=== PATIENT | female | born 1965 | race African-American/Black ===

== ENCOUNTER 2021-09-01 20:11 | Emergency (ER) | payer MEDICARE, OTHER ==
[~2021-09-01] VITALS: Ht 154.9 cm; Wt 59.0 kg
[2021-09-01 20:49] VITALS: BP_SYST 121
[2021-09-01 21:40] LABS: BILIRUBIN,URINE NEGATIVE (NEGATIVE); BLOOD, URINE 2+ (NEGATIVE); COLOR,URINE YELLOW (YELLOW); GLUCOSE,URINE NEGATIVE (NEGATIVE); KETONES,URINE NEGATIVE (NEGATIVE); LEUKOCYTE ESTERASE ,URINE 1+ (NEGATIVE); NITRITE, URINE NEGATIVE (NEGATIVE); PROTEIN URINE NEGATIVE (NEGATIVE); UROBILINOGEN,URINE 0.2 (0.2-1.0)
--- NOTE | 2021-09-01 22:05 | NUR ---
Per ad clerk, pt LWBS.
[2021-09-01 22:20] LABS: CLARITY/URINE SLIGHTLY HAZY (CLEAR)
[2021-09-01 23:14] LABS: BACTERIA,URINE FEW /HPF (None Seen)
[2021-09-01 23:15] LABS: MUCUS,URINE None Seen /LPF (None Seen)
== END 2021-09-01 22:05 | disposition left against medical advice (07) ==
LOC: SED 20:11
DX: M54.9 Dorsalgia, unspecified (principal); Z53.21 Procedure and treatment not carried out due to patient leaving prior to being seen by health care provider
CPT/HCPCS: 81000; 87086